=== PATIENT | male | born 1975 | race Caucasian/White ===

== ENCOUNTER 2016-10-09 22:08 | Emergency (ER) | payer MEDICARE, MEDICAID ==
[2016-10-09] MEDS ORDERED: Haloperidol INJ IV/IM* 5 MG/ML AMP ONE (22:25)
[2016-10-09] MEDS ORDERED: LORazepam INJ* 2 MG/ML 1 ML VIAL ONE (22:25)
[2016-10-09] MEDS ORDERED: diPHENhydraMINE IV* 50 MG/ML 1 ml VIAL (BENADRYL) ONE (22:25)
[2016-10-09] MEDS ORDERED: Nicotine Inhaler* 10 MG AMP ONE (22:38)
[2016-10-09] MEDS ORDERED: Mouth Piece, Nicotine* 1 EACH CARTRIDGE ONE (22:38)
[2016-10-09] MEDS ORDERED: Haloperidol TAB* 5 MG ONE (23:16)
[2016-10-09] MEDS ORDERED: Haloperidol TAB* 5 MG PO ONE (23:19)
[2016-10-09 23:39] LABS: Urine Bilirubin Negative (Negative); Urine Glucose Negative (Negative); Urine Nitrite Negative (Negative)
[2016-10-09 23:49] LABS: Benzodiazepine Urine Screen None Detected (None Detect)
[2016-10-10 00:38] LABS: Hematocrit 40 % (42-52); Hemoglobin 13.7 g/dl (14.0-18.0); Mean Corpuscular HGB Conc 34 g/dl (31-36); Mean Corpuscular Hemoglobin 32 pg (27-31); Mean Corpuscular Volume 95 fL (80-94); Mean Platelet Volume 8 um3 (7.4-10.4); Red Blood Count 4.25 10^6/ul (4.0-5.4); Red Cell Distribution Width 15 % (10.5-15)
[2016-10-10 00:50] LABS: ALT 10 U/L (7-52); AST 14 U/L (13-39); Albumin 3.9 g/dL (3.2-5.2); Alkaline Phosphatase 60 U/L (34-104); Anion Gap 6 mmol/L (2-11); BUN/Creatinine Ratio 13.9 (8-20); Blood Urea Nitrogen 10 mg/dL (6-24); CO2 Carbon Dioxide 26 mmol/L (22-32); Calcium 8.7 mg/dL (8.6-10.3); Chloride 111 mmol/L (101-111); EGFR African American 155.5 (>60); EGFR Non-African American 120.9 (>60); Globulin 2.4 g/dL (2-4); Glucose 100 mg/dL (70-100); Potassium 3.5 mmol/L (3.5-5.0); Sodium 143 mmol/L (133-145); Total Protein 6.3 g/dL (6.4-8.9)
[2016-10-10 01:11] LABS: Acetaminophen < 15 mcg/mL; Alcohol 243 mg/dL (<10); Salicylate < 2.50 mg/dL (<30)
[2016-10-10 01:22] LABS: TSH (Thyroid Stimulating Horm) 1.15 mcIU/mL (0.34-5.60)
[2016-10-10] MEDS ORDERED: NS 0.9% 1000 ML* 1,000 ML IV ONE (03:09)
[2016-10-10 06:02] VITALS: BP 87/47
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
== END 2016-10-10 07:00 | disposition home or self-care (01) ==
LOC: ED 22:08
DX: F10.10 Alcohol abuse, uncomplicated (principal)
CPT/HCPCS: 36415; 80053; 80307; 80320; 80329; 81003; 84443; 85025; 96374; 99282; A9270-GY; G0480; J1200; J1630; J2060